=== PATIENT | male | born 1965 | race Caucasian/White ===

== ENCOUNTER 2021-04-08 12:44 | Emergency (ER) | payer OTHER ==
[2021-04-08 16:14] LABS: RED BLOOD COUNT 4.74 M/UL (4.20-5.50); WHITE BLOOD COUNT 10.2 K/UL (4.5-11.0)
[2021-04-08 16:43] LABS: BUN/CREATININE RATIO 17 (0-10)
[2021-04-08] MEDS ORDERED: CEPHALEXIN500 M1 PO (19:26)
[2021-04-08] MEDS ORDERED: LASIX40 MG PO (19:26)
[2021-04-08] MEDS ORDERED: K-DUR TAB 20 M20 MEQ PO (19:26)
== END 2021-04-08 19:50 | disposition home or self-care (01) ==
LOC: ER1 12:44
PROVIDERS: Physician Assistant
DX: R60.0 Localized edema (principal); R07.89 Other chest pain; R42 Dizziness and giddiness; I10 Essential (primary) hypertension; J44.9 Chronic obstructive pulmonary disease, unspecified; E03.9 Hypothyroidism, unspecified; Z79.899 Other long term (current) drug therapy; F17.200 Nicotine dependence, unspecified, uncomplicated
CPT/HCPCS: 70450; 71046; 80053; 81001; 82550; 82553; 83874; 83880; 84439; 84443; 84484; 85025; 93005; 93970; 99285